=== PATIENT | male | born 1995 | race African-American/Black ===

== ENCOUNTER 2022-03-11 12:53 | Emergency (ER) | payer MEDICAID ==
[~2022-03-11] VITALS: Ht 170.2 cm; Wt 94.8 kg
[2022-03-11 13:05] VITALS: BP 126/87
== END 2022-03-11 23:23 | disposition left against medical advice (07) ==
LOC: ER 12:53
DX: M79.644 Pain in right finger(s) (principal); R22.31 Localized swelling, mass and lump, right upper limb; Z53.21 Procedure and treatment not carried out due to patient leaving prior to being seen by health care provider; X58.XXXA Exposure to other specified factors, initial encounter; Y93.89 Activity, other specified; Y92.89 Other specified places as the place of occurrence of the external cause; Y99.8 Other external cause status
CPT/HCPCS: 73140